=== PATIENT | female | born 2000 | race Caucasian/White ===

== ENCOUNTER 2023-08-04 13:22 | Emergency (ER) | payer OTHER ==
--- NOTE | 2023-08-04 14:45 | ED Physician Documentation ---
PD HPI OPHTHO - Stated complaint Stated Complaint: VISION DISTURBANCE - Chief complaint Chief Complaint: Heent - Additional information Additional information: 23-year-old female with no pertinent significant past medical history presents emergency department for concerns of right eye vision loss. Patient says that is just a sliver does not much and came on suddenly when she was texting today around noon. She has had no recent changes in medication she has not had any new contacts she is wearing glasses overall her vision feels normal in the same it is just the right peripheral vision loss that is concerning for her as she is flying out tomorrow. She also has mild what she describes as sinus headache with little bit of pressure behind her eyes. There is no pain with eye movement. PD PAST MEDICAL HISTORY - Past Medical History Past Medical History: Yes Psych: Depression, Anxiety Other Past Medical History: POTS - Past Surgical History Past Surgical History: Yes - Present Medications Home Medications: Ambulatory Orders Medication Instructions Recorded Confirmed Escitalopram Oxalate [Lexapro] 20 mg PO DAILY 08/04/23 08/04/23 - Allergies Allergies/Adverse Reactions: Allergies Allergy/AdvReac Type Severity Reaction Status Date / Time amoxicillin Allergy Rash Verified 08/04/23 13:31 - Social History Does the pt smoke?: No Smoking Status: Never smoker PD ED PE NORMAL - Vitals Vital signs reviewed: Yes - General General: Alert and oriented X 3, No acute distress, Well developed/nourished - HEENT HEENT: PERRL, EOMI, Other (No temporal pain to the right pentecostal) - Cardiac Cardiac: RRR, No murmur, Strong equal pulses - Derm Derm: Normal color, Warm and dry, No rash - Neuro Neuro: Alert and oriented X 3, No motor deficit, Normal speech, Other (Right peripheral vision loss) Eye Opening: Spontaneous Motor: Obeys Commands Verbal: Oriented GCS Score: 15 Results - Vitals Vitals: Vital Signs - 24 hr 08/04/23 08/04/23 08/04/23 13:27 15:45 19:18 Temperature 36.6 C 36.7 C Heart Rate 73 56 L 75 Respiratory 16 18 18 Rate Blood Pressure 157/94 H 132/86 H 143/88 H O2 Saturation 97 100 100 Oxygen O2 Source Room air - Labs Labs: Laboratory Tests 08/04/23 08/04/23 08/04/23 15:36 15:36 15:36 WBC 8.0 RBC 4.80 Hgb 13.1 Hct 42.0 MCV 87.5 MCH 27.3 MCHC 31.2 L RDW 13.8 Plt Count 286 MPV 11.5 H Neut # (Auto) 4.7 Lymph # (Auto) 2.4 Wood # (Auto) 0.7 Eos # (Auto) 0.1 Baso # (Auto) 0.0 Absolute Nucleated RBC 0.00 Nucleated RBC % 0.0 ESR 41 H Sodium 138 Potassium 3.6 Chloride 104 Carbon Dioxide 29 Anion Gap 5.0 L BUN 10 Creatinine 0.5 L Estimated GFR (MDRD) 152 Glucose 104 Calcium 9.7 Total Bilirubin 0.2 AST 20 ALT 11 Alkaline Phosphatase 94 C-React Prot High Sens 13.86 Total Protein 7.5 Albumin 4.3 Globulin 3.2 Albumin/Globulin Ratio 1.3 Urine HCG, Qual 08/04/23 15:54 WBC RBC Hgb Hct MCV MCH MCHC RDW Plt Count MPV Neut # (Auto) Lymph # (Auto) Wood # (Auto) Eos # (Auto) Baso # (Auto) Absolute Nucleated RBC Nucleated RBC % ESR Sodium Potassium Chloride Carbon Dioxide Anion Gap BUN Creatinine Estimated GFR (MDRD) Glucose Calcium Total Bilirubin AST ALT Alkaline Phosphatase C-React Prot High Sens Total Protein Albumin Globulin Albumin/Globulin Ratio Urine HCG, Qual NEGATIVE - Rads (name of study) Head CT without Relevant Findings:: Final report received, EMP independent interpretation of test, Other (No intracranial hemorrhages or other acute abnormalities) Brain MRI with Relevant Findings:: Final report received, EMP independent interpretation of test, Other (Normal MRI no abnormalities of the brain) PD Medical Decision Making - ED course ED course: Given history of painless vision loss initial differential were concerning for CRAO vs CRVO. Vision is unilateral with no other focal neuro deficits so doubt stroke, patient exam and history make retinal detachment, vitreous hemorrhage, posterior vitreous detachment lower on differential. Given painless vision loss low suspicion for normally painful syndromes such as corneal abrasion/ulcer, complex migraine, globe rupture, acute angle closure glaucoma, optic neuritis, temporal arteritis, uveitis, endophthalmitis, iritis. Labs are complete and ESR was unfortunately elevated as well as CRP, although initial head CT was negative for any acute intracranial abnormalities or hemorrhages because of these elevated labs we pursued an MRI with contrast for further evaluation of possible emergent causes of painless vision loss. Brain MRI with did not reveal any acute abnormalities or findings. I am not entirely certain what is causing patient's vision loss but for now we will treat it as a painless migraine with aura. She is told to follow-up with primary care provider as well as wildfire prevention specialist if vision loss persist or to come back to the emergency department vision loss gets any worse. There is no MS findings on MRI with contrast. At this time we have done a thorough and complete workup she is safe for discharge and understands strict ER return precautions. Departure - Departure Disposition: 01 Home, Self Care Clinical Impression: Migraine aura occurring with and without headache Instructions: ED Headache Migraine Comments: Thank you for trusting us with your care we have done a thorough and complete workup we did not see any acute abnormalities or findings on the CT scan, MRI, or on your labs to make us concerned about Forms: PCP List Discharge Date/Time: 08/04/23 19:48
[2023-08-04 15:55] VITALS: O2SAT 100
[2023-08-04 16:01] LABS: ALBUMIN 4.3 g/dL (3.2-5.5); ALBUMIN/GLOBULIN RATIO 1.3 (1.0-2.2); BILIRUBIN,TOTAL 0.2 mg/dL (0.2-1.0); CALCIUM 9.7 mg/dL (8.5-10.3); CREATININE 0.5 mg/dL (0.6-1.3); CRP HIGH SENSITIVITY 13.86 mg/L; POTASSIUM 3.6 mmol/L (3.5-4.5); TOTAL PROTEIN 7.5 g/dL (6.4-8.9)
[2023-08-04 16:06] LABS: HCG UR QUAL NEGATIVE
--- NOTE | 2023-08-04 17:07 | CT Report ---
PROCEDURE: Head WO INDICATIONS: right peripheral vision loss TECHNIQUE: Noncontrast 4.5 mm thick angled axial sections acquired from the foramen magnum to the vertex. For r adiation dose reduction, the following was used: automated exposure control, adjustment of mA and/or kV according to patient size. COMPARISON: None. FINDINGS: Image quality: There is streak artifact seen through the skull base. CSF spaces: Basal cisterns are patent. No extra-axial fluid collections. Ventricles are normal in size and shape. Brain: No midline shift. No intracranial masses or hemorrhage. Mueller-white matter interface is norm al. Skull and face: Calvarium and visualized facial bones are intact, without suspicious lesions. Incid ental note is made of body ornamentation artifact. Sinuses: Visualized sinuses and mastoids are clear. IMPRESSION: No imaging explanation is found for the patient's presenting symptoms. If it would be helpful for clinical management decision making, please consider a dedicated brain MRI for further evaluation (assuming that there is no contraindication). Reviewed by: Eric Mcclain MD on 08/04/2023 4:05 PM [facility] Approved by: Eric Mcclain MD on 08/04/2023 4:05 PM [facility] Station ID: [id number]
[2023-08-04 18:07] LABS: BASOPHILS % (AUTO) 0.4 %; EOSINOPHILS # (AUTO) 0.1 10^3/uL (0.0-0.7); EOSINOPHILS % (AUTO) 1.6 %; HGB - HEMOGLOBIN 13.1 g/dL (12.0-16.0); LYMPHOCYTES # (AUTO) 2.4 10^3/uL (1.5-3.5); LYMPHOCYTES % (AUTO) 30.6 %; MEAN CORPUSCULAR HEMOGLOBIN 27.3 pg (27.0-31.0); MEAN CORPUSCULAR HGB CONC 31.2 g/dL (32.0-36.0); MEAN CORPUSCULAR VOLUME 87.5 fL (81.0-99.0); MEAN PLATELET VOLUME 11.5 fL (7.9-10.8); MONOCYTES # (AUTO) 0.7 10^3/uL (0.0-1.0); MONOCYTES % (AUTO) 8.4 %; NEUTROPHILS # (AUTO) 4.7 10^3/uL (1.5-6.6); NEUTROPHILS % (AUTO) 58.5 %; PLT - PLATELET COUNT 286 10^3/uL (130-450); RED CELL DISTRIBUTION WIDTH 13.8 % (12.0-15.0)
[2023-08-04] MEDS ORDERED: GADOTERATE MEGLUMINE 10 MMOL/20 ML VIAL ONE (18:07)
[2023-08-04] MEDS: ACETAMINOPHEN 325 MG TABLET PO STA (18:13)
[2023-08-04] MEDS: KETOROLAC 30 MG/ML VIAL IM STA (18:13)
[2023-08-04] MEDS: GADOTERATE MEGLUMINE 10 MMOL/20 ML VIAL IVP ONE (19:15)
[2023-08-04 19:20] VITALS: BP 143/88
--- NOTE | 2023-08-04 19:22 | MRI Report ---
PROCEDURE: Brain W/WO INDICATIONS: elevated CRP and ESR CONTRAST: CLARISCAN 19ML TECHNIQUE: Noncontrast axial T1 spin echo, axial T2 fast spin echo, sagittal and axial FLAIR, coronal T2 fast sp in echo, axial gradient echo, axial diffusion and ADC through the brain. After the administration of contrast, axial and coronal T1 spin echo with fat saturation through the brain. COMPARISON: Same day CT. FINDINGS: Image quality: Excellent. CSF spaces: Basal cisterns are patent. No extra-axial fluid collections. Ventricles are normal in size and shape. Brain: No midline shift. No intracranial bleeds or masses. No abnormal intracranial enhancement. There is cerebral volume loss for age. There is periventricular white matter chronic small vessel is chemic change. The brainstem appears normal. Diffusion-weighted images demonstrate no acute ischemi c insults. No chronic ischemic insults. Normal intravascular flow voids are present. Skull and face: Calvarial marrow is normal in signal. Orbits appear normal. Sinuses: Sinuses and mastoids appear clear. Other: Symmetric enhancement of the optic nerve. IMPRESSION: Normal brain MRI. Symmetric enhancement of the optic nerve and no T2 hyperintense white matter lesions to suggest multiple sclerosis. Reviewed by: Liang Goff MD on 08/04/2023 7:21 PM PST Approved by: Liang Goff MD on 08/04/2023 7:21 PM PST Station ID: [id number]
== END 2023-08-04 19:48 | disposition home or self-care (01) ==
LOC: ED 13:22
DX: G43.109 Migraine with aura, not intractable, without status migrainosus (principal)
CPT/HCPCS: 36415; 70450; 70553; 80053; 81025; 85025; 85651; 86141; 96372; 99284; A9575